=== PATIENT | female | born 1990 | race Caucasian/White ===

== ENCOUNTER 2018-08-19 12:56 | Observation (INO) | payer BC ==
[2018-08-19] MEDS ORDERED: NS 1,000 ML IV ONE ×4 (13:37→17:24)
--- NOTE | 2018-08-19 13:39 | EDPHY ---
H & P Time Seen by Provider: 08/19/18 13:10 HPI/ROS: Chief complaint. Vomiting HPI. The patient is 28-year-old female with vomiting for 2 days. She arrived from [place] for a visit the day before. On Thursday 2 days ago she began with a migraine had vomiting. She has no headache now. Yesterday she went to [place]. She can't keep fluids down. She has no prior altitude exposure. Patient thinks she has altitude illness. No chest pain. Slight shortness of breath with exertion. No abdominal pain. No diarrhea. Otherwise no travel or exposure to Infectious Disease ROS 10 systems were reviewed and negative with the exception of the elements mentioned in the history of present illness Past Medical/Surgical History: Patent foramina ovale Social History: Single, nonsmoker, no alcohol Smoking Status: Never smoked Physical Exam: General Appearance: Alert well-developed female moderate distress vital signs significant for blood pressure 153/109 Eyes: Pupils equal and round no pallor or injection. ENT, Mouth: Mucous membranes are dry. Respiratory: There are no retractions, lungs are clear to auscultation. Cardiovascular: Regular rate and rhythm. Gastrointestinal: Abdomen is soft and nontender, no masses, bowel sounds normal. Neurological: Awake and alert, sensory and motor exams grossly normal. Skin: Warm and dry, no rashes. Musculoskeletal: Neck is supple nontender. Extremities symmetrical, full range of motion. Psychiatric: Patient is oriented X 3, there is no agitation. Constitutional: Initial Vital Signs Temperature (C) 36.3 C 08/19/18 13:03 Heart Rate 78 08/19/18 13:03 Respiratory Rate 16 08/19/18 13:03 Blood Pressure 153/109 H 08/19/18 13:03 O2 Sat (%) 99 08/19/18 13:03 O2 Delivery Mode Nasal Cannula O2 (L/minute) 2 Allergies/Adverse Reactions: No Known Allergies Allergy (Unverified 08/19/18 13:07) Home Medications: Medication Instructions Recorded Aspirin [Aspirin 81mg (*)] 81 mg PO HS 08/19/18 Escitalopram Oxalate [Lexapro] 10 mg PO HS 08/19/18 Loratadine 10 mg PO DAILY 08/19/18 Norgestimate-Ethinyl Estradiol 1 tab PO DAILY 08/19/18 [Previfem Tablet] Medical Decision Making - Diagnostics Imaging Results: Imaging Impressions Chest X-Ray 08/19/18 14:14 Impression: 1. No acute pulmonary disease. 2. Consider chest two views when the patient's medical condition permits. Chest x-ray interpreted by me as normal Procedures: IV normal saline with initial target 2 L. Phenergan for nausea ED Course/Re-evaluation: Re-evaluation 2:15 p.m.. Patient is still somewhat nauseated. She is given Zofran IV Patient has received Phenergan x2, Zofran. 3 L of fluids. I have recommended that she be admitted overnight however she has refused. She is really not keeping Oral fluids down. At 6:40 p.m. Patient agrees to admission I consulted discussed the case with , hospitalist, who agrees to the admission Differential Diagnosis: I considered dehydration, electrolyte abnormality. I think there is an element of altitude illness associated with her vomiting - Data Points Laboratory Results: Laboratory Results 08/19/18 13:30 08/19/18 13:30 08/19/18 08/19/18 08/19/18 13:30 13:30 13:30 WBC RBC Hgb Hct MCV MCH MCHC RDW Plt Count MPV Neut % (Auto) Lymph % (Auto) [place] % (Auto) Eos % (Auto) Baso % (Auto) Nucleat RBC Rel Count Absolute Neuts (auto) Absolute Lymphs (auto) Absolute Monos (auto) Absolute Eos (auto) Absolute Basos (auto) Absolute Nucleated RBC Immature Gran % Immature Gran # Sodium 136 mEq/L mEq/L (135-145) Potassium 4.4 mEq/L mEq/L (3.5-5.2) Chloride 106 mEq/L mEq/L (97-110) Carbon Dioxide 21 mEq/l L mEq/l (22-31) Anion Gap 9 mEq/L mEq/L (6-14) BUN 13 mg/dL mg/dL (7-23) Creatinine 0.7 mg/dL mg/dL (0.6-1.0) Estimated GFR > 60 Glucose 94 mg/dL mg/dL (70-100) Calcium 9.0 mg/dL mg/dL (8.5-10.4) NT-Pro-B Natriuret Pep 99 pg/mL pg/mL (0-125) Lipase 48 IU/L IU/L (23-300) Beta HCG, Qual NEGATIVE 08/19/18 13:30 WBC 12.37 10^3/uL H 10^3/uL (3.80-9.50) RBC 4.95 10^6/uL 10^6/uL (4.18-5.33) Hgb 13.1 g/dL g/dL (12.6-16.3) Hct 39.9 % % (38.0-47.0) MCV 80.6 fL L fL (81.5-99.8) MCH 26.5 pg L pg (27.9-34.1) MCHC 32.8 g/dL g/dL (32.4-36.7) RDW 13.1 % % (11.5-15.2) Plt Count 296 10^3/uL 10^3/uL (150-400) MPV 8.5 fL L fL (8.7-11.7) Neut % (Auto) 82.2 % H % (39.3-74.2) Lymph % (Auto) 13.5 % L % (15.0-45.0) Knox % (Auto) 3.3 % L % (4.5-13.0) Eos % (Auto) 0.2 % L % (0.6-7.6) Baso % (Auto) 0.3 % % (0.3-1.7) Nucleat RBC Rel Count 0.0 % % (0.0-0.2) Absolute Neuts (auto) 10.16 10^3/uL H 10^3/uL (1.70-6.50) Absolute Lymphs (auto) 1.67 10^3/uL 10^3/uL (1.00-3.00) Absolute Monos (auto) 0.41 10^3/uL 10^3/uL (0.30-0.80) Absolute Eos (auto) 0.03 10^3/uL 10^3/uL (0.03-0.40) Absolute Basos (auto) 0.04 10^3/uL 10^3/uL (0.02-0.10) Absolute Nucleated RBC 0.00 10^3/uL 10^3/uL (0-0.01) Immature Gran % 0.5 % % (0.0-1.1) Immature Gran # 0.06 10^3/uL 10^3/uL (0.00-0.10) Sodium Potassium Chloride Carbon Dioxide Anion Gap BUN Creatinine Estimated GFR Glucose Calcium NT-Pro-B Natriuret Pep Lipase Beta HCG, Qual Medications Given: Discontinued Medications Sodium Chloride (Ns) 1,000 mls @ 0 mls/hr IV EDNOW ONE; Wide Open PRN Reason: Protocol Stop: 08/19/18 13:38 Last Admin: 08/19/18 13:40 Dose: 1,000 mls Sodium Chloride (Ns) 1,000 mls @ 0 mls/hr IV EDNOW ONE; Wide Open PRN Reason: Protocol Stop: 08/19/18 13:45 Last Admin: 08/19/18 13:53 Dose: 1,000 mls Sodium Chloride (Ns) 1,000 mls @ 0 mls/hr IV ONCE ONE; Wide Open PRN Reason: Protocol Stop: 08/19/18 15:59 Last Admin: 08/19/18 16:01 Dose: 1,000 mls Sodium Chloride (Ns) 1,000 mls @ 0 mls/hr IV EDNOW ONE; Wide Open PRN Reason: Protocol Stop: 08/19/18 17:25 Last Admin: 08/19/18 17:25 Dose: 1,000 mls Ondansetron HCl (Zofran) 4 mg IVP EDNOW ONE Stop: 08/19/18 14:23 Last Admin: 08/19/18 14:53 Dose: 4 mg Promethazine HCl (Phenergan) 12.5 mg IVP EDNOW ONE Stop: 08/19/18 13:45 Last Admin: 08/19/18 13:53 Dose: 12.5 mg Promethazine HCl (Phenergan) 12.5 mg IVP EDNOW ONE Stop: 08/19/18 18:13 Last Admin: 08/19/18 18:15 Dose: 12.5 mg Departure - Departure Disposition: [facility] Acute Clinical Impression: Dehydration Vomiting Qualifiers: Vomiting type: unspecified Vomiting Intractability: non-intractable Nausea presence: with nausea Qualified Code(s): R11.2 - Nausea with vomiting, unspecified Altitude sickness Qualifiers: Encounter type: initial encounter Qualified Code(s): T70.29XA - Other effects of high altitude, initial encounter Condition: Fair
[2018-08-19] MEDS ORDERED: PROMETHAZINE HCL 25 MG/ML INJ IVP ONE ×2 (13:44→18:12)
[2018-08-19 13:57] LABS: PLATELET COUNT 296 10^3/uL (150-400)
[2018-08-19] MEDS ORDERED: ONDANSETRON 4 MG/2 ML VIAL IVP ONE (14:22)
[2018-08-19] MEDS ORDERED: ONDANSETRON DISINTEGRATING 4 MG TAB PO PRN (19:18)
[2018-08-19] MEDS ORDERED: ACETAMINOPHEN 325 MG TAB PO PRN (19:18)
[2018-08-19] MEDS ORDERED: PROMETHAZINE HCL 25 MG/ML INJ IVP PRN (19:18)
[2018-08-19] MEDS ORDERED: NS 1,000 ML IV SCH (19:30)
--- NOTE | 2018-08-19 20:00 | PDGENHP ---
<Briana Alvarez - Last Filed: 08/19/18 20:00> History and Physical - Chief Complaint Nausea, vomiting - History of Present Illness 28 y/o morbidly obese female w/ hx of depression and PFO presents to the ED w/ worsening nausea, vomiting, lightheadedness, and occasional headaches, onset Thursday night. She is from [place] and visiting family here in [place]. She arrived Thursday and as the day was ending, began to have general malaise. Since that time, she is unable to keep anything down food or fluid gutierrez. No hematemesis. Denies CP, palpitations, diarrhea, cough, fevers. Endorses subjective chills. She is being admitted for treatment and monitoring. History Information - Allergies/Home Medication List Allergies/Adverse Reactions: No Known Allergies Allergy (Unverified 08/19/18 13:07) Home Medications: Aspirin [Aspirin 81mg (*)] 81 mg PO HS 08/19/18 [Last Taken 08/17/18] Escitalopram Oxalate [Lexapro] 10 mg PO HS 08/19/18 [Last Taken 08/17/18] Loratadine 10 mg PO DAILY 08/19/18 [Last Taken 08/18/18] Norgestimate-Ethinyl Estradiol [Previfem Tablet] 1 tab PO HS 08/19/18 [Last Taken 08/18/18] I have personally reviewed and updated: family history, medical history, social history, surgical history Past Medical History: Depression. PFO. Seasonal allergies - Surgical History Reports: no pertinent surgical hx - Family History Positive for: non-pertinent - Social History Smoking Status: Never smoked Alcohol Use: Rarely Drug Use: None Additional social history: Lives in [place] and is here on vacation to visit family. 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 Case discussed w/ admitting physician, Dr. Kristyn Brown. WBC: 12.37 RBC/H/H: 4.95/13.1/39.9 CXR: No acute pulmonary process Temp Pulse Resp BP Pulse Ox 36.4 C 77 16 133/94 H 100 08/19/18 18:00 08/19/18 18:00 08/19/18 18:00 08/19/18 18:00 08/19/18 18:00 Constitutional: obese, uncomfortable Eyes: PERRL, anicteric sclera, EOMI Ears, Nose, Mouth, Throat: hearing normal, ears appear normal, no oral mucosal ulcers, dry mucous membranes Cardiovascular: regular rate and rhythym, no murmur, rub, or gallop, No edema Peripheral Pulses: 2+: dorsalis-pedis (R) (Radial 2+), dorsalis-pedis (L) ( Radial 2+) Respiratory: reduced air movement Gastrointestinal: soft, non-tender abdomen, no palpable masses, other ( Hypoactive BS) Genitourinary: no bladder fullness, no bladder tenderness Skin: warm, normal color, no rashes or abrasions, no fluctuance, no induration, No mottled Musculoskeletal: full muscle strength, no muscle tenderness, normal joint ROM, no joint effusions Neurologic: AAOx3, sensation intact bilaterally, CN II-XII Intact Psychiatric: interacting appropriately, not anxious, not encephalopathic, thought process linear Lymph, Heme, Immunologic: no cervical LAD, no supraclavicular LAD Lab Data & Imaging Review 08/19/18 13:30 08/19/18 13:30 WBC 12.37 10^3/uL (3.80-9.50) H 08/19/18 13:30 RBC 4.95 10^6/uL (4.18-5.33) 08/19/18 13:30 Hgb 13.1 g/dL (12.6-16.3) 08/19/18 13:30 Hct 39.9 % (38.0-47.0) 08/19/18 13:30 MCV 80.6 fL (81.5-99.8) L 08/19/18 13:30 MCH 26.5 pg (27.9-34.1) L 08/19/18 13:30 MCHC 32.8 g/dL (32.4-36.7) 08/19/18 13:30 RDW 13.1 % (11.5-15.2) 08/19/18 13:30 Plt Count 296 10^3/uL (150-400) 08/19/18 13:30 MPV 8.5 fL (8.7-11.7) L 08/19/18 13:30 Neut % (Auto) 82.2 % (39.3-74.2) H 08/19/18 13:30 Lymph % (Auto) 13.5 % (15.0-45.0) L 08/19/18 13:30 [place] % (Auto) 3.3 % (4.5-13.0) L 08/19/18 13:30 Eos % (Auto) 0.2 % (0.6-7.6) L 08/19/18 13:30 Baso % (Auto) 0.3 % (0.3-1.7) 08/19/18 13:30 Nucleat RBC Rel Count 0.0 % (0.0-0.2) 08/19/18 13:30 Absolute Neuts (auto) 10.16 10^3/uL (1.70-6.50) H 08/19/18 13:30 Absolute Lymphs (auto) 1.67 10^3/uL (1.00-3.00) 08/19/18 13:30 Absolute Monos (auto) 0.41 10^3/uL (0.30-0.80) 08/19/18 13:30 Absolute Eos (auto) 0.03 10^3/uL (0.03-0.40) 08/19/18 13:30 Absolute Basos (auto) 0.04 10^3/uL (0.02-0.10) 08/19/18 13:30 Absolute Nucleated RBC 0.00 10^3/uL (0-0.01) 08/19/18 13:30 Immature Gran % 0.5 % (0.0-1.1) 08/19/18 13:30 Immature Gran # 0.06 10^3/uL (0.00-0.10) 08/19/18 13:30 Sodium 136 mEq/L (135-145) 08/19/18 13:30 Potassium 4.4 mEq/L (3.5-5.2) 08/19/18 13:30 Chloride 106 mEq/L (97-110) 08/19/18 13:30 Carbon Dioxide 21 mEq/l (22-31) L 08/19/18 13:30 Anion Gap 9 mEq/L (6-14) 08/19/18 13:30 BUN 13 mg/dL (7-23) 08/19/18 13:30 Creatinine 0.7 mg/dL (0.6-1.0) 08/19/18 13:30 Estimated GFR > 60 08/19/18 13:30 Glucose 94 mg/dL (70-100) 08/19/18 13:30 Calcium 9.0 mg/dL (8.5-10.4) 08/19/18 13:30 NT-Pro-B Natriuret Pep 99 pg/mL (0-125) 08/19/18 13:30 Lipase 48 IU/L (23-300) 08/19/18 13:30 Beta HCG, Qual NEGATIVE 08/19/18 13:30 Assessment & Plan Assessment: 28 y/o female w/ depression and PFO presenting w/ acute illness of N/V/LYNCH/ lightheadedness, poor PO intake since onset visiting from [place]. She has never been to [place] before. #Acute Altitude sickness #Dehydration #Leukocytosis #Nausea/Vomiting #Depression Plan: -She received 4L NS, 25 mg IV Phenergan, and 4 mg of Zofran in ED -Cont 1 x bag of IVF -Recheck CBC/BMP in AM -Oxygen supplement -Anti-emetics PRN -Continue all home medications -Encourage PO intake Diet: Regular VTE ppx: SCDs Code: Full Dispo: Admit to obs <Kristyn Brown - Last Filed: 08/19/18 22:54> History and Physical - History of Present Illness Review of Systems Review of Systems: Physical Exam Physical Exam: Temp Pulse Resp BP Pulse Ox 36.8 C 96 16 154/104 H 95 08/19/18 20:57 08/19/18 20:57 08/19/18 20:57 08/19/18 20:57 08/19/18 20:57 O2 (L/minute) 2 Lab Data & Imaging Review 08/19/18 13:30 08/19/18 13:30 WBC 12.37 10^3/uL (3.80-9.50) H 08/19/18 13:30 RBC 4.95 10^6/uL (4.18-5.33) 08/19/18 13:30 Hgb 13.1 g/dL (12.6-16.3) 08/19/18 13:30 Hct 39.9 % (38.0-47.0) 08/19/18 13:30 MCV 80.6 fL (81.5-99.8) L 08/19/18 13:30 MCH 26.5 pg (27.9-34.1) L 08/19/18 13:30 MCHC 32.8 g/dL (32.4-36.7) 08/19/18 13:30 RDW 13.1 % (11.5-15.2) 08/19/18 13:30 Plt Count 296 10^3/uL (150-400) 08/19/18 13:30 MPV 8.5 fL (8.7-11.7) L 08/19/18 13:30 Neut % (Auto) 82.2 % (39.3-74.2) H 08/19/18 13:30 Lymph % (Auto) 13.5 % (15.0-45.0) L 08/19/18 13:30 [place] % (Auto) 3.3 % (4.5-13.0) L 08/19/18 13:30 Eos % (Auto) 0.2 % (0.6-7.6) L 08/19/18 13:30 Baso % (Auto) 0.3 % (0.3-1.7) 08/19/18 13:30 Nucleat RBC Rel Count 0.0 % (0.0-0.2) 08/19/18 13:30 Absolute Neuts (auto) 10.16 10^3/uL (1.70-6.50) H 08/19/18 13:30 Absolute Lymphs (auto) 1.67 10^3/uL (1.00-3.00) 08/19/18 13:30 Absolute Monos (auto) 0.41 10^3/uL (0.30-0.80) 08/19/18 13:30 Absolute Eos (auto) 0.03 10^3/uL (0.03-0.40) 08/19/18 13:30 Absolute Basos (auto) 0.04 10^3/uL (0.02-0.10) 08/19/18 13:30 Absolute Nucleated RBC 0.00 10^3/uL (0-0.01) 08/19/18 13:30 Immature Gran % 0.5 % (0.0-1.1) 08/19/18 13:30 Immature Gran # 0.06 10^3/uL (0.00-0.10) 08/19/18 13:30 Sodium 136 mEq/L (135-145) 08/19/18 13:30 Potassium 4.4 mEq/L (3.5-5.2) 08/19/18 13:30 Chloride 106 mEq/L (97-110) 08/19/18 13:30 Carbon Dioxide 21 mEq/l (22-31) L 08/19/18 13:30 Anion Gap 9 mEq/L (6-14) 08/19/18 13:30 BUN 13 mg/dL (7-23) 08/19/18 13:30 Creatinine 0.7 mg/dL (0.6-1.0) 08/19/18 13:30 Estimated GFR > 60 08/19/18 13:30 Glucose 94 mg/dL (70-100) 08/19/18 13:30 Calcium 9.0 mg/dL (8.5-10.4) 08/19/18 13:30 NT-Pro-B Natriuret Pep 99 pg/mL (0-125) 08/19/18 13:30 Lipase 48 IU/L (23-300) 08/19/18 13:30 Beta HCG, Qual NEGATIVE 08/19/18 13:30 Assessment & Plan Assessment: Patient seen and evaluated independently and care plan reviewed with SOL Alvarez. Agree with her assessment as outlined above, please see separate note for further details.
[2018-08-19] MEDS ORDERED: ASPIRIN 81 MG CHEWABLE TAB PO SCH (21:00)
[2018-08-19] MEDS ORDERED: ESCITALOPRAM OXALATE 10 MG TAB PO SCH (21:00)
[2018-08-19] MEDS: ONDANSETRON 4 MG/2 ML VIAL IVP PRN (21:12)
[2018-08-19] MEDS: CETIRIZINE 10 MG TAB PO SCH (22:20)
[2018-08-19] MEDS ORDERED: NORGESTIMATE ETHINYL ESTRADIOL PO SCH (22:30)
--- NOTE | 2018-08-19 22:59 | HOSPPROG ---
Hospitalist Progress Note Assessment/Plan: 28 yo F with hx of morbid obesity presenting with n/v/headache and malaise # n/v: patient with n/v for the last 2 days without associated diarrhea or abdominal pain, she notes it began shortly after she arrived in [place] from [place], and worsened after she went to [place] for the day. She has not been around anyone sick, has not had fever or chills. Despite antiemetics and IVF sxs persists. Will get abd xray to r/o e/o obstruction, continue prn antiemetics , IVF overnight. Does not espouse a hx of MJ use, will get drug screen. # LYNCH: has resolved but began shortly after arriving in [place] from [place] and worsening on going to higher altitude in [place], will monitor, pain meds prn # morbid obesity: recommend lifestyle modification # leukocytosis: with n/v but no other s/s of infection, will trend overnight # observation status Patient new to my care. Old records reviewed and summarized as above. Care plan reviewed with ER doctor, further hx obtained from patients brother present at bedside. Care plan reviewed with SOL Alvarez, please see her separate H&P for further details. Objective: Vital Signs Temp Pulse Resp BP Pulse Ox 36.8 C 96 16 154/104 H 95 08/19/18 20:57 08/19/18 20:57 08/19/18 20:57 08/19/18 20:57 08/19/18 20:57 08/18/18 08/19/18 08/20/18 05:59 05:59 05:59 Intake Total 4000 Balance 4000 ICD10 Worksheet Patient Problems: Problems Problem Status Onset Vomiting Acute Dehydration Acute Altitude sickness Acute
[2018-08-20 05:41] LABS: PLATELET COUNT 251 10^3/uL (150-400)
[2018-08-20] MEDS: ONDANSETRON 4 MG/2 ML VIAL IVP PRN (06:49)
[2018-08-20] MEDS: CETIRIZINE 10 MG TAB PO SCH (08:55)
[2018-08-20] MEDS ORDERED: NS 1,000 ML IV ONE (09:15)
[2018-08-20 11:37] VITALS: BP 142/87
--- NOTE | 2018-08-20 11:41 | ASMTDCNOTE ---
Case Management Discharge Discharge Order Complete? Answers: No Notes: Spoke with , discharg e planned for today. Patient to Obtain Answers: via Family Medications Transportation Arranged Answers: Family/Friends Discharge Comments Notes: Pt is 28 year old female who presents with vomiting and altitude sickness. Pt is visiting from [place]. CM discussed care with RN and MD, pt has no CM needs at this time. Pt will discharge independently. Date Signed: 08/20/2018 11:41 AM Electronically Signed By:ROGELIO Grimes
--- NOTE | 2018-08-20 13:55 | GDS ---
[f rep st] DISCHARGE SUMMARY ALL DIAGNOSES: 1. Intractable nausea and vomiting. 2. Morbid obesity. 3. Leukocytosis. 4. Dehydration. 5. Depression. HOSPITAL COURSE: This is a 28-year-old female, who presented with intractable nausea and vomiting. She was given conservative treatment including IV fluids and antiemetics. She was also very dehydrat ed and so has been rehydrated adequately. On the day of discharge, she is tolerating enough liquid i n order to keep herself hydrated. Although, she has not tolerated a full meal. She felt safe for [facility] and feels as though she is overall improving. Etiology is either viral or altitude sickness. She is from [place] and is visiting here, had been up to [place] the day before. She is discharged in stable condition with a prescription for Zofran ODT. She was given strict return precautions mart ld she be unable to tolerate p.o. /[id number]/MODL
--- NOTE | 2018-08-20 15:16 | ASDISCHSUM ---
Discharge Information Plan Status:Home with No Needs Medically Cleared to Leave:08/20/2018 Discharge Date:08/20/2018 01:47 PM CM D/C Disposition:Home, Routine, Self-Care ADT D/C Disposition:Home, Routine, Self-Care Projected Discharge Date:08/20/2018 12:00 AM Transportation at D/C:Family Discharge Delay Reason: Follow-Up Date:08/20/2018 12:00 AM Discharge Slot:2 - 12:01 pm - 18:00 pm Final Diagnosis:Altitude sickness Placement Information Patient Contact Information Contact Name:MICHAEL Relationship:Sister Address: Work Phone: City: [facility] Phone: [facility]/SIPphone Code:[place] Email: Financial Information Financial Class:BCOP Primary Plan Desc: OUT OF [facility] Primary Plan Number:[id number] Secondary Plan Desc: Secondary Plan Number: Assessment Information Case Management Discharge Plan Note Case Management Discharge Discharge Order Complete? Answers: No Notes: Spoke with , maria elena guillen planned for today. Patient to Obtain Answers: via Family Medications Transportation Arranged Answers: Family/Friends Discharge Comments Notes: Pt is 28 year old female who presents with vomiting and altitude sickness. Pt is visiting from [place]. CM discussed care with RN and MD, pt has no CM needs at this time. Pt will discharge independently. Date Signed: 08/20/2018 11:41 AM Electronically Signed By:ROGELIO Grimes Intervention Information
== END 2018-08-20 13:47 | disposition home or self-care (01) ==
LOC: INTOOBSV 18:25 → F1N 20:52
PROVIDERS: ADMIT Internal Medicine; ATTEND Student in an Organized Health Care Education/Training Program
DX: T70.29XA Other effects of high altitude, initial encounter (principal); R11.2 Nausea with vomiting, unspecified; E86.0 Dehydration; D72.829 Elevated white blood cell count, unspecified; E66.01 Morbid (severe) obesity due to excess calories; F32.9 Major depressive disorder, single episode, unspecified; Q21.1 Atrial septal defect
CPT/HCPCS: 71045; 74019; G0378; 80307; 96374; G0480; J2405; J2550

== ENCOUNTER 2018-08-21 15:21 | Emergency (ER) | payer BC ==
--- NOTE | 2018-08-21 15:53 | EDPHY ---
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, depression - Social History Smoking Status: Never smoked Constitutional: Initial Vital Signs Temperature (C) 36.4 C 08/21/18 15:32 Heart Rate 78 08/21/18 15:32 Respiratory Rate 26 H 08/21/18 15:32 Blood Pressure 155/80 H 08/21/18 15:32 O2 Sat (%) 100 08/21/18 15:32 O2 Delivery Mode Room Air Allergies/Adverse Reactions: No Known Allergies Allergy (Unverified 08/19/18 13:07) Home Medications: Medication Instructions Recorded Aspirin [Aspirin 81mg (*)] 81 mg PO HS 08/19/18 Escitalopram Oxalate [Lexapro 10 10 mg PO HS 08/19/18 MG] Loratadine 10 mg PO DAILY 08/19/18 Norgestimate-Ethinyl Estradiol 1 tab PO HS 08/19/18 [Previfem Tablet] Ondansetron Odt [Zofran Odt 4 mg 4 mg PO Q4HRS PRN #30 tab 08/20/18 (*)] Medical Decision Making ED Course/Re-evaluation: CHIEF COMPLAINT: Nausea, vomiting, facial tingling HISTORY OF PRESENT ILLNESS: The patient is a 28 y/o female with a history of migraines complaining of nausea , vomiting and facial tingling. She flew to [place] from [place] earlier this week. When she arrived in [place] she had "altitude sickness" including nausea and vomiting. She also had a migraine at that time. She then went to a higher elevation and her symptoms worsened. [place] for [place] sickness. Yesterday she was discharged and came back to [place]. However her symptoms have not improved; she no longer has a migraine. She denies having similar symptoms at home in [place]. She does report that Phenergan works better than Zofran for her nausea. No fever, headache, body aches, lightheadedness, chest pain, heart palpitations, shortness of breath , cough, abdominal pain, urinary or bowel complaints, numbness, paresthesias. REVIEW OF SYSTEMS: A comprehensive 10 system review of systems is otherwise negative aside from elements mentioned in the history of present illness and medical decision making. PHYSICAL EXAM: HR, BP, O2 Sat, RR. Temp noted General Appearance: Alert, well hydrated, appropriate, and non-toxic appearing. Head: Atraumatic without scalp tenderness or obvious injury Eyes: Pupils equal, round, reactive to light and accommodation, EOMI, no trauma , no injection. Ears: Clear bilaterally, no perforation, normal landmarks Nose: Atraumatic, no rhinorrhea, clear. Throat: There is no erythema or exudates, no lesions, normal tonsils, mucus membranes moist. Neck: Supple, 2+ carotid upstroke, nontender, no lymphadenopathy. Respiratory: No retractions, no distress, no wheezes, and no accessory muscle use. Lungs are clear to auscultation bilaterally. Cardiovascular: Regular rate and rhythm, no murmurs, rubs, or gallops. Bilateral carotid, radial, dorsalis pedis, and posterior tibial pulses intact. Good capillary refill all extremities. Gastrointestinal: Abdomen is soft, nontender, non-distended, no masses, no rebound, no guarding, no peritoneal signs. Musculoskeletal: Normal active ROM of all extremities, atraumatic. Neurological: Alert, appropriate, and interactive. The patient has normal DTRs and non-focal cranial nerves, motor, sensory, and cerebellar exam. Skin: No rashes, good turgor, no nodules on palpation. 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 DIFFERENTIAL DIAGNOSIS: The differential diagnosis for the patient's nausea and vomiting included but was not limited to gastroenteritis, gastritis, appendicitis, and medication side effect. MEDICAL DECISION MAKING: The patient is a 28 y/o female with a history of migraines presenting with nausea, vomiting and facial tingling. She believes these symptoms are due to altitude sickness as she recently flew here from [place]. She has a normal physical exam and does not appear dehydrated. Labs ordered; 2L IV NS and 12.5mg IV Phenergan as she prefers this over Zofran. 1645: Reassessed patient and discussed normal laboratory findings. She is feeling better after medications. I will prescribe her Phenergan for the nausea and vomiting. Return precautions provided; patient is comfortable with this plan. - Data Points Laboratory Results: 08/21/18 08/21/18 16:32 15:56 POC Hgb 14.3 gm/dL gm/dL (12.6-16.3) POC Hct 42 % % (38-47) POC Sodium 140 mEq/L mEq/L (135-145) POC Potassium 3.6 mEq/L mEq/L (3.3-5.0) POC Chloride 101 mEq/L mEq/L (97-110) POC Total CO2 23 mEq/L mEq/L (22-31) POC BUN 7 mg/dL mg/dL (7-23) POC Creatinine 0.7 mg/dL mg/dL (0.6-1.0) POC Glucose 98 mg/dL mg/dL (70-100) Beta HCG, Qual NEGATIVE Medications Given: Discontinued Medications Sodium Chloride (Ns) 1,000 mls @ 0 mls/hr IV EDNOW ONE; Wide Open PRN Reason: Protocol Stop: 08/21/18 16:11 Last Admin: 08/21/18 16:24 Dose: 1,000 mls Promethazine HCl (Phenergan) 12.5 mg IVP EDNOW ONE Stop: 08/21/18 16:11 Last Admin: 08/21/18 16:24 Dose: 12.5 mg Point of Care Test Results: Chemistry 08/21/18 16:32 POC Sodium 140 mEq/L mEq/L (135-145) POC Potassium 3.6 mEq/L mEq/L (3.3-5.0) POC Chloride 101 mEq/L mEq/L (97-110) POC Total CO2 23 mEq/L mEq/L (22-31) POC BUN 7 mg/dL mg/dL (7-23) POC Creatinine 0.7 mg/dL mg/dL (0.6-1.0) POC Glucose 98 mg/dL mg/dL (70-100) ISTAT H&H 08/21/18 16:32 POC Hgb 14.3 gm/dL gm/dL (12.6-16.3) POC Hct 42 % % (38-47) Departure - Departure Disposition: Home, Routine, Self-Care Clinical Impression: Nausea & vomiting Qualifiers: Vomiting type: unspecified Vomiting Intractability: intractable Qualified Code( s): R11.2 - Nausea with vomiting, unspecified Gastritis Qualifiers: Gastritis type: unspecified gastritis Chronicity: acute Gastritis bleeding: without bleeding Qualified Code(s): K29.00 - Acute gastritis without bleeding Condition: Good Instructions: Acute Nausea and Vomiting (ED) Additional Instructions: 1. Drink plenty of fluids. 2. Follow-up with your primary doctor within 72 hours. 3. Return to the Emergency Department for fever, chest pain, shortness of breath , increasing pain or other worsening of condition. 4. Take Phenergan as prescribed for nausea and vomiting. Referrals: ELLIOT RENE [Other] - As per Instructions Report Scribed for: Yandel Thompson Report Scribed by: Kayla Jimenez Date of Report: 08/21/18 Time of Report: 15:54
[2018-08-21] MEDS ORDERED: PROMETHAZINE HCL 25 MG/ML INJ IVP ONE (16:10)
[2018-08-21] MEDS ORDERED: NS 1,000 ML IV ONE ×2 (16:10)
[2018-08-21 17:22] VITALS: BP 158/90
== END 2018-08-21 17:23 | disposition home or self-care (01) ==
DX: R11.2 Nausea with vomiting, unspecified (principal); K29.00 Acute gastritis without bleeding; E86.9 Volume depletion, unspecified
CPT/HCPCS: 82435-PO; 82565-PO; 82947-PO; 84132-PO; 84295-PO; 84520-PO; 85014-ER; 96374; J2550